=== PATIENT | female | born 1965 | race African-American/Black ===

== ENCOUNTER 2020-10-13 06:44 | Inpatient (IN) | payer OTHER ==
[~2020-10-13] VITALS: Ht 149.9 cm; Wt 70.8 kg
[2020-10-13] VITALS (17 sets, daily range): BP systolic 102–141; BP diastolic 58–96
[2020-10-13] MEDS ORDERED: ceFAZolin sod 1 GM in NS 55 ML IVPB ONE (07:00)
[2020-10-13] MEDS ORDERED: LAMICTAL25 M1 PO (07:13)
[2020-10-13] MEDS ORDERED: BUPROPION XL150 MG ORAL (07:13)
[2020-10-13] MEDS ORDERED: Gelfoam Size TOPIC ONE (07:36)
[2020-10-13] MEDS ORDERED: Lidocaine 1% 10mg/ml/Epi 0.005mg/ml 30ml vial INJ ONE (07:36)
[2020-10-13] MEDS ORDERED: Thrombin 5000 units TOPIC ONE ×2 (07:36→07:38)
[2020-10-13] MEDS ORDERED: Bacitracin 50000 Units Vial ONE (07:36)
[2020-10-13] MEDS ORDERED: Bupivacaine w/Epi 0.25% 50ml vial INJ ONE (07:36)
[2020-10-13] MEDS ORDERED: Succinylcholine 20mg/ml 10ml vial ONE (07:40)
[2020-10-13] MEDS ORDERED: Rocuronium Bromide 50mg/5ml Inj IV ONE (07:40)
[2020-10-13] MEDS ORDERED: Lidocaine 1% MPF 10mg/ml 5ml ONE (07:51)
[2020-10-13] MEDS ORDERED: fentaNYL 100 mcg/2 mL IV ONE (07:55)
[2020-10-13] MEDS ORDERED: Midazolam 2mg/2ml Inj ONE (07:55)
--- NOTE | 2020-10-13 08:19 | Anethesia Preoperative Eval ---
Anesthesia Pre-op PMH/ROS General Date of Evaluation: Oct 13, 2020 Time of Evaluation: 08:14 Anesthesiologist: Aaron ASA Score: ASA 2 Mallampati Score Class I : Soft palate, uvula, fauces, pillars visible Class II: Soft palate, uvula, fauces visible Class III: Soft palate, base of uvula visible Class IV: Only hard plate visible Mallampati Classification: Class II Surgeon: Abilio Diagnosis: Cervical radiculopathy Surgical Procedure: ACDF Anesthesia History: none Family History: no anesthesia problems Allergies: Coded Allergies: No Known Allergies (Unverified , 10/09/20) Medications: see eMAR Patient NPO?: Yes Past Medical History Cardiovascular: Denies: HTN, CAD, AL, valve dz, arrhythmia, other Pulmonary: Denies: asthma, COPD, MIKAL, other Gastrointestinal/Genitourinary: Reports: GERD; Denies: CRI, ESRD, other Neurologic/Psychiatric: Reports: depression/anxiety, other - chronic pain; Denies: dementia, CVA, TIA Endocrine: Denies: DM, hypothyroidism, steroids, other HEENT: Denies: cataract (L), cataract (R), glaucoma, NELSON LAGOON (L), NELSON LAGOON (R), other Hematology/Immune: Reports: anemia - mild; Denies: DVT, bleeding disorder, other Musculoskeletal/Integumentary: Reports: OA; Denies: RA, DJD, DDD, edema, other PMH Narrative: as above PSxH Narrative: Cholecystectomy, hysterectomy Anesthesia Pre-op Phys. Exam Physician Exam Last Vital Signs Date Time Temp Pulse Resp B/P (MAP) Pulse Ox O2 Delivery O2 Flow Rate FiO2 10/13/20 07:41 Room Air 10/13/20 07:16 97.4 76 20 124/73 (90) 98 Constitutional: NAD Neurologic: CN 2-12 intact Cardiovascular: RRR, no M/R/G Gastrointestinal: S/NT/ND Airway Exam Mallampati Score: Class II MO: limited Neck: stiff ROM: limited Teeth: missing Dentures: no upper, no lower Anesthesia Pre-op A/P Labs see chart Studies Pre-op Studies: EKG - SR Risk Assessment & Plan Assessment: ASA 2 Plan: GA with ETT, neuromonitoring Status Change Before Surgery: No Pre-Antibiotics Drug: Ancef 2gr. Given Within 1 Hr of Incision: Yes Time Given: 09:20 Gregorio Walker MD Oct 13, 2020 08:19
[2020-10-13] MEDS ORDERED: NS Irrig 1000ml ONE (08:30)
[2020-10-13] MEDS ORDERED: Neostigmine 1mg/ml 10ml Inj ONE (08:30)
[2020-10-13] MEDS ORDERED: Acetaminophen (Non formulary) 100 ML IV ONE (08:30)
[2020-10-13] MEDS ORDERED: LR 1000ml ONE (08:30)
[2020-10-13] MEDS ORDERED: propofoL 1,000mg/100ml IV ONE (08:30)
[2020-10-13] MEDS ORDERED: Sterile Water Irrig 1000ml IRRIG ONE (08:30)
--- NOTE | 2020-10-13 08:56 | Pre-Procedure Note/Attestation ---
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 I attest that, if there was a reasonable possibility of needing a blood transfusion, the patient (or the patient's legal provider service representative) was given the [facility] standardized written summary, pursuant to the [place]alyan Alix Blood Safety Act ([place] Health and Safety Code # 1645, as amended). I attest that I re-evaluated the patient just prior to the surgery and that there has been no change in the patient's H&P, except as documented below: Antione Knox MD Oct 13, 2020 08:56
--- NOTE | 2020-10-13 08:58 | Brief Operative Note ---
Immediate Post Operative Note Operative Note Pre-op Diagnosis: C456 HNP Procedure: C456 ACDF Post-op Diagnosis: same as pre-op Findings: consistent w/pre-op dx studies Surgeon: rc Mirror Installer: Holland STARK Anesthesiologist: shakeel Anesthesia: general Specimen: none Complications: none Condition: stable Fluids: 800 Estimated Blood Loss: minimal Drains: none Implant(s) used?: Yes - choice interbody and plate Antione Knox MD Oct 13, 2020 08:58
[2020-10-13] MEDS ORDERED: Gelatin Sponge,Absorbable Syr TP ONE (09:16)
[2020-10-13] MEDS ORDERED: NS Irrig 1000ml IRRIG ONE ×2 (09:16→09:49)
[2020-10-13] MEDS ORDERED: Morphine Sulfate 10mg/ml Inj ONE (09:38)
[2020-10-13] MEDS ORDERED: Sodium Chloride 10ml vial INJ ONE (09:39)
[2020-10-13] MEDS ORDERED: Glycopyrrolate 0.2mg/ml 1ml Vial ONE (09:39)
[2020-10-13] MEDS ORDERED: Ketorolac 30mg Inj ONE (09:49)
[2020-10-13] MEDS ORDERED: Meperidine 25mg/1ml Inj (FOR RIGORS ONLY) IV PRN (10:00)
[2020-10-13] MEDS ORDERED: Midazolam 2mg/2ml Inj IVP PRN (10:00)
[2020-10-13] MEDS ORDERED: Ketorolac 30mg Inj IV PRN (10:00)
[2020-10-13] MEDS ORDERED: LR 1000ml 1,000 ML IVLG SCH (10:00)
[2020-10-13] MEDS ORDERED: DiphenhydrAMINE 50mg/ml Inj IVP PRN (10:00)
[2020-10-13] MEDS ORDERED: Hydromorphone 0.5mg/0.5ml inj IVP PRN (10:00)
[2020-10-13] MEDS ORDERED: Milk of Magnesia 30ml Ud ORAL PRN ×2 (11:15→18:30)
--- NOTE | 2020-10-13 11:30 | Immediate Post-Op Evaluation ---
Immediate Post-Op Evalulation Immediate Post-Op Evalulation Procedure: ACDF C4-C5 C5-C6 Date of Evaluation: Oct 13, 2020 Time of Evaluation: 11:29 IV Fluids: 800 Blood Products: none Estimated Blood Loss: 50 Urinary Output: 250 Blood Pressure Systolic: 114 Blood Pressure Diastolic: 56 Pulse Rate: 78 Respiratory Rate: 20 O2 Sat by Pulse Oximetry: 99 Temperature (Fahrenheit): 97.8 Pain Score (1-10): 1 Nausea: No Vomiting: No Complications none Patient Status: reacts, patent, extubated, none Hydration Status: adequate Gregorio Walker MD Oct 13, 2020 11:30
--- NOTE | 2020-10-13 13:28 | Diagnostic Imaging Report ---
CLINICAL HISTORY: Neck pain. Fluoroscopic imaging from spinal surgery COMPARISON: None FINDINGS: Fluoroscopy independent procedure performed for spinal surgery. 14.1 seconds of fluoroscopy time utilized by the ordering physician. Total cumulative dose is 1.94 mGy and 0.28369 mGy.m2. Total of 4 spot images are obtained. IMPRESSION: FLUOROSCOPIC IMAGING FROM SPINAL SURGERY. PLEASE SEE OPERATIVE REPORT.
--- NOTE | 2020-10-13 13:28 | Diagnostic Imaging Report ---
CLINICAL HISTORY: Neck pain. Fluoroscopic imaging from spinal surgery COMPARISON: None FINDINGS: Fluoroscopy independent procedure performed for spinal surgery. 14.1 seconds of fluoroscopy time utilized by the ordering physician. Total cumulative dose is 1.94 mGy and 0.68102 mGy.m2. Total of 4 spot images are obtained. IMPRESSION: FLUOROSCOPIC IMAGING FROM SPINAL SURGERY. PLEASE SEE OPERATIVE REPORT.
--- NOTE | 2020-10-13 13:38 | NUR ---
NURSE NOTES: RN received report from Atilio and patient in bed. Patient is sleeping, shos no signs of respiratory distress or pain. Vitals are stable. Ice pack is placed on the neck. SCDs are on. Bed in lowest position, locked, bed alarm on. IV is patent, dry, asymptomatic. Call light within reach. Cervical collar is at the bed side.
[2020-10-13] MEDS ORDERED: Chloraseptic Spray 20mL Bottle ORAL PRN (13:45)
--- NOTE | 2020-10-13 14:30 | NUR ---
NURSE NOTES: Gregg from outpatient surgery brought the patient's belongings. Rn verified the belonging and signed.
[2020-10-13] MEDS: D5 1/2NS 1,000 ML IV SCH ×2 (14:41→21:15)
[2020-10-13] MEDS: HYDROmorphone 1mg/ml Carpuject IVP PRN ×2 (17:10→22:21)
[2020-10-13] MEDS: Docusate 100mg cap ORAL SCH (17:11)
[2020-10-13] MEDS: ceFAZolin sod 1 GM in D5W 55 ML IV SCH (17:11)
--- NOTE | 2020-10-13 17:28 | NUR ---
NURSE NOTES: RN made Dr. Guillen aware about patient's disorientation. He will come soon to see her.
--- NOTE | 2020-10-13 17:38 | NUR ---
NURSE NOTES: Patient is aaoX3. RN placed chloraseptic spray by the bedside as ordered by Dr. Guillen.
--- NOTE | 2020-10-13 18:29 | Operative Note - Dictated ---
DATE OF OPERATION: 10/13/2020 SURGEON: Antione Knox MD. CAMPUS EXECUTIVE DIRECTOR: LINCOLN Wright. ANESTHESIOLOGIST: Gregorio Wlaker MD. ANESTHESIA TYPE: General endotracheal anesthesia. PREOPERATIVE DIAGNOSES: 1. Cervical disc herniation, C5-C6. 2. Cervical bulge with spinal stenosis, C4-C5. 3. Cervical spondylotic myelopathy. POSTOPERATIVE DIAGNOSES: 1. Cervical disc herniation, C5-C6. 2. Cervical bulge with spinal stenosis, C4-C5. 3. Cervical spondylotic myelopathy. PROCEDURE: 1. Wide and radical discectomy, anterior cervical spine, C4-C5, C5-C6. 2. Placement of interbody fusion device (ChoiceSpine). 3. Use of local autograft and Signafuse allograft. 4. Anterior cervical plating using ChoiceSpine plate, C4, 5 and 6. 5. Use of fluoroscopy. 6. Use of operating microscope. 7. Neurodiagnostic monitoring. ESTIMATED BLOOD LOSS: Minimal. COMPLICATIONS: None. FLUIDS: 800 mL. IMPLANTS: A 5 mm small and 6 mm small lordotic cages at C4-C5 and C5-C6 respectively. INDICATIONS: The patient is a very pleasant woman with fairly severe and intractable neck with myeloradiculopathic symptoms, severe spinal stenosis at C5-C6 and to a lesser extent C4-C5. Surgical recommendations were made. Due to the possible need for posterior laminectomy in the future, it was elected to perform a fusion rather than artificial disc replacement. RISK NOTE: The patient was explained in detail risks and benefits of surgery to include, but not be limited to those of bleeding, infection, damage to nerves, vessels, tendons, anesthetic risk, allergic reaction, aspiration, and possibly . The patient understood and wished to proceed. OPERATIVE PROCEDURE IN DETAIL: The patient was taken to the operative suite. After general endotracheal anesthesia was obtained, Rome catheter was placed. She was positioned supine onto a radiolucent table bolster under her neck, chin was strapped. The neck was prepped and draped in usual sterile fashion. Fluoroscope was brought in place and the C4-C5 and C5-C6 level was identified. At this point, the skin was infiltrated with Marcaine with epinephrine. The incision was carried out transversely along the skin crease and taken out through the subcutaneous. The platysma was incised perpendicular to the fibers. The interval between the esophagus and the sternocleidomastoid was bluntly developed and dissection was carried out to the prevertebral fascia. The self-retaining retractors were put in place. A needle was placed at C5-C6 and radiographically this was confirmed. At this point, operating microscope was brought into place. The longus colli was elevated off the bone. The anterior longitudinal ligament was removed from C5 and partially at C6. Juan posts 12 mm were placed at C5 and C6. At this point, the disc was incised and gentle disc distraction was obtained. Straight and curved curettes were used to remove the disc all the way down to the posterior annulus. A disc rupture with extrusion through the posterior annulus was identified and this was removed in a piecemeal fashion. The posterior longitudinal ligament was also removed using meticulous technique using #1 and #2 Kerrison punch. Once the decompression of the spinal cord was achieved, copious irrigation was performed. FloSeal was applied. The appropriate size trial was put into place and a small lordotic 6 mm cage was chosen. It was centrally packed with bone graft from the anterior osteophyte resection as well as with Signafuse. It was inserted into the disc space. This was verified fluoroscopically and noted to be in good position. Juan posts was removed from C6. The retractors were moved to the C4-C5 level. [place] posts was placed at the C4 level and in an identical fashion wide and radical discectomy was achieved. Please note that endplate preparation at both levels was meticulously performed to achieve a solid fusion. The implant placed at the C4-C5 level was 5 mm lordotic cage. Once this was safely achieved, the [place] posts were both removed. Bone wax was applied to both Juan posts sites. At this point, the appropriate size 26 mm plate was chosen, contoured and applied to the anterior vertebral body. The screw holes were drilled and the appropriate size 12 mm screws were placed first at C5 bilaterally and subsequently at C4, then at C6. Once all screw placement was verified and noted to be in the solid and firmly inserted into the bone, copious irrigation was performed. Final fluoroscopic images confirmed good overall hardware placement. Copious irrigation once again performed. A small amount of bone graft was placed lateral to the cages. At this point, decision was made to close. Meticulous hemostasis was achieved. The platysma was repaired using 3-0 Vicryl, subcutaneous closure using 4-0 Vicryl. Dermabond and sterile dressing, 2 x 2 Tegaderm was applied. At time of this dictation, the patient was awaiting extubation. Sponge and needle counts were correct. Antione Harshal Knox DR: SAEED JOB#: [id number] CC:
[2020-10-13] MEDS ORDERED: LORazepam 0.5mg tab ORAL PRN (18:30)
[2020-10-13] MEDS ORDERED: LORazepam 0.5mg tab ORAL SCH (18:30)
[2020-10-13] MEDS ORDERED: HYDROcodone/Acetamin 5/325 tab ORAL PRN (18:30)
--- NOTE | 2020-10-13 18:36 | NUR ---
NURSE NOTES: Patient is moved to a room right next to the nursing station as ordered by Dr. Guillen. RN made Dr. Guillen about patient having anxiety attacks and received orders for Lamictal and Ativan. Pharmacist Noel is verifying the order for two doses of Lamictal with Dr. Guillen as it seems like a duplicate order.
--- NOTE | 2020-10-13 19:20 | NUR ---
NURSE NOTES: Received report from ERICA Barboza. Pt is in bed, call light within reach, side rails up x3, bed locked and in lowest position. Pt verbalized understanding to make her needs known. IVF infusing well. Will continue to monitor.
--- NOTE | 2020-10-13 19:27 | NUR ---
NURSE NOTES: Ativan and Lamictal given as ordered.
--- NOTE | 2020-10-13 19:27 | NUR ---
NURSE HAND-OFF: Important Events on Shift:post op intervention, psych and pain meds Patient Status: anxious Diet: soft easy chew Pending Orders: n/a Pending Results/Labs:n/a Pending MD notification:n/a Latest Vital Signs: Temperature 97.4 , Pulse 78 , B/P 141 /96 , Respiratory Rate 18 , O2 SAT 98 , Nasal Cannula, O2 Flow Rate 3 . Vital Sign Comment: stable Latest Howard Fall Score: 20 Fall Risk: Low Risk Safety Measures: Call light Within Reach, Bed Alarm Zone 1, Side Rails Side Rails x1, Bed position Low and Locked. Fall Precautions: Report given to
[2020-10-13] MEDS: BuPROPion XL 150mg tab ORAL SCH (19:58)
--- NOTE | 2020-10-13 20:29 | Consultation ---
DATE OF CONSULTATION: 10/13/2020 CONSULTING PHYSICIAN: Chalo Guillen MD. REFERRING PHYSICIAN: Antione Knox MD. REASON FOR CONSULTATION: Acute pain consult HISTORY OF PRESENT ILLNESS: Dr. Antione Knox, Thank you kindly for consulting me to evaluate and render an opinion as to how to proceed in the management of the patient's acute postoperative cervical spine pain after cervical spine instrumentation surgery today. The patient is a 54-year-old woman, who injured her cervical spine in a work-related injury. Today, she underwent multi-level cervical spine instrumentation surgery and the patient complains significant discomfort postoperatively. You consulted me to help with the patient's postoperative management and pain control. I saw the patient at bedside with the charge nurse, ERICA Ambrosio. I performed a detailed history and physical examination. I spent over 75 minutes in consultation with an additional 30 minutes in medical record review. Multiple records were reviewed including utilization review and surgical authorization by [employer], dated September 21, 2020 certifying multi-level cervical spine surgery as certified and authorized at [facility] with Dr. Antione Knox. Further records reviewed include preoperative history and physical by Dhiraj Hernández MD., dated October 09, 2020 along with diagnostic testing. Multiple records were reviewed from today's date of surgery, October 13, 2020 at [facility], including consent for surgical treatment, consent for anesthesia, consent for blood products, medication administration record, medication reconciliation order form, PACU record, PACU orders, anesthesia record, pre- and post-anesthesia evaluation record, postoperative spine surgical orders and postoperative surgery report by Dr. Antione Knox, initial nursing assessment, 24-hour medical and surgical flow sheet, and Weinbreg-Fish diagram for cognitive disability. PAST MEDICAL HISTORY: 1. Acute postoperative cervical spine pain, status post mult-level cervical spine instrumentation surgery by Dr. Antione Knox, October 2020. 2. Work-related injury. 3. Severe anxiety and depression, on multiple antidepressant medications including Wellbutrin and Lamictal. 4. Mild obesity. PAST SURGICAL HISTORY: Hysterectomy and cholecystectomy. FAMILY HISTORY: Mother is alive and I spoke with the mother on the phone. SOCIAL HISTORY: The patient lives with her in [place] and her mother lives locally in [place] and is in good contact with the patient. The mother plans to assist the patient with her recovery. The patient denies marijuana usage or tobacco usage. REVIEW OF SYSTEMS: Per attending physician. ALLERGIES: No known drug allergies. MEDICATIONS: At home, multivitamins, Wellbutrin extended release 300 mg daily, and Lamictal 25 mg daily. PHYSICAL EXAMINATION: VITAL SIGNS: Age 54. Height 4 feet 11 inches. Weight 156 pounds. Body mass index 32. Her vital signs shows 98% oxygen saturation on room air. Afebrile. Pulse 80. Respirations 18. Blood pressure 140/96. HEENT: Shows pain with range of motion of the neck. Moving all extremities x4. Alert and ordered x3; however, the patient is a bit confused. I was speaking with the patient and her mother via telephone, the patient just seems a bit disoriented after waking up from surgery. Her oxygen saturation is normal and she appears non-toxic. Kimball collar remains in place and I fitted the Kimball collar rigid brace for better comfort. The patient shows no signs of respiratory trouble after her neck surgery. She is breathing normal respiratory rate and comfortably. The patient also was phonating and swallowing adequately. CHEST: Clear to auscultation. HEART: Regular rate and rhythm. ABDOMEN: Mildly obese. Positive bowel sounds. BREASTS: Deferred. GENITOURINARY: Deferred. Rome catheter in place. NEUROLOGIC: Detailed neurologic exam per Dr. Knox. DIAGNOSTIC TESTING: Shows 12-lead EKG. Heart rate is 69, dated October 09, 2020. MRI cervical spine, dated June 22, 2020 shows broad base cervical spine disk protrusions at C4-5 and C5-6 causing severe spinal canal stenosis. LABORATORY STUDIES: Shows urine toxicology screen all negative. Hemoglobin A1c 5.8, normal. Sedimentation rate 24, normal. TSH 0.7, normal. Further preoperative laboratories from October 09, 2020 shows INR 1.1, PTT 30. Sodium 142, potassium 4.3, chloride 106, bicarb 29, BUN 20, creatinine 1.0. Calcium 9.3. Total protein 7.3, albumin 4.0. AST is 14, ALT 12, total bilirubin 0.2. Glucose 102. White count 5, hematocrit 33, platelets 274. IMPRESSION: 1. Acute postoperative cervical spine pain, status post mult-level cervical spine instrumentation surgery by Dr. Antione Knox, October 2020. 2. Work-related injury. 3. Severe anxiety and depression, on multiple antidepressant medications including Wellbutrin and Lamictal. 4. Mild obesity. TREATMENT RECOMMENDATIONS: I spoke with the recovery room nurse, ERICA Trimble, prior to examining the patient at bedside. I spoke with the hospital pharmacist, Nae. I will restart the patient's psychiatric medications starting with her Lamictal 25 mg dose now and restart her Wellbutrin 300 mg in the morning. The patient states that she feels quite anxious. I earlier had recommended the dose of 0.5 mg intravenous Dilaudid for analgesia. The patient tolerated this dose without any adverse side effects or respiratory depression. I therefore will trial her on low-dose benzodiazepine for anxiolysis. I will start with 0.25 mg orally. I prefer to use oral route compared to intravenous, to reduce the risk for respiratory depression. I have also added p.r.n. dose of hydrocodone 5/325 mg to be trialed one tablet every three hours p.r.n. for mild pain. I recommend to hold off on further narcotics at this time. I will alternate these two doses of the hydrocodone and hydromorphone, while adjusting the doses as necessary to achieve anxiolysis and effective analgesia. I have also asked the nurse to place Chloraseptic spray at the bedside to help with topical sore throat complaints. I have added Fioricet for any postoperative headache complaints. The patient has no known drug allergies. I will empirically place the patient on Pepcid 20 mg b.i.d. for GI ulcer prophylaxis and I have also ordered p.r.n. dose of Mylanta 30 mL every 6 hours in case of any GERD symptom exacerbation. I have ordered Zofran as a rescue antiemetic at 4 mg intravenous dose every 4 hours p.r.n. I have ordered Benadryl 25 mg orally every 6 hours in case of any itching complaints. I will place the patient on Colace 100 mg b.i.d. to promote bowel regularity and I have ordered p.r.n. dose of milk of magnesia as a rescue laxative. With her obesity, I have ordered incentive spirometer to be placed at the bedside to encourage good pulmonary toilet. Sequential compression pneumatic devices have been ordered for DVT prophylaxis. The Rome catheter will remain in place overnight. We will start physical therapy training in the morning and hopefully be able to discharge the patient home within next 24 hours to and/or mother. At the time of discharge, the patient will need a prescription for postop outpatient pain medications. Chalo Guillen M.D. DR: HARDY JOB#: [id number] CC:
[2020-10-14] VITALS: BP 111/70
[2020-10-14] MEDS: ceFAZolin sod 1 GM in D5W 55 ML IV SCH ×2 (01:35→09:43)
[2020-10-14] MEDS: D5 1/2NS 1,000 ML IV SCH ×2 (02:03→17:33)
--- NOTE | 2020-10-14 03:26 | Pain Management Progress Note ---
Allergies: Coded Allergies: No Known Allergies (Unverified , 10/09/20) Vitals Vital Signs Date Time Temp Pulse Resp B/P (MAP) Pulse Ox O2 Delivery O2 Flow Rate FiO2 10/14/20 00:00 97.6 70 18 111/70 (84) 98 10/13/20 21:00 Room Air 10/13/20 20:00 97.8 76 20 138/85 (102) 98 10/13/20 19:22 78 18 141/96 98 Medications Current Medications Acetaminophen (Tylenol) 650 mg Q6H PRN ORAL Temp >100.5; Start 10/13/20 at 18:30; Stop 11/12/20 at 18:29 Acetaminophen/ Butalbital/ Caffeine (Fioricet) 1 tab Q8H PRN ORAL headache; Start 10/13/20 at 18:45; Stop 11/12/20 at 18:44 Acetaminophen/ Hydrocodone Bitart ([place] 5/325) 1 tab Q3H PRN ORAL Mild Pain (Pain Scale 1-3) Last administered on 10/14/20at 03:11; Start 10/13/20 at 18:30; Stop 10/20/20 at 18:29 Al Hydroxide/Mg Hydroxide (Mylanta) 30 ml Q6H PRN ORAL gerd; Start 10/13/20 at 18:30; Stop 11/12/20 at 18:29 Bupropion HCl (Wellbutrin XL) 300 mg DAILY ORAL Last administered on 10/13/20at 19:58; Start 10/13/20 at 20:00; Stop 11/13/20 at 19:59 Cefazolin Sodium 1 gm/Dextrose 55 ml @ 110 mls/hr Q8H IV Last administered on 10/14/20at 01:35; Start 10/13/20 at 17:30; Stop 10/14/20 at 09:59 Dextrose/Sodium Chloride 1,000 ml @ 100 mls/hr Q10H IV Last administered on 10/14/20at 02:03; Start 10/13/20 at 11:15; Stop 11/12/20 at 11:14 Diphenhydramine HCl (Benadryl) 25 mg Q6H PRN ORAL Itching; Start 10/13/20 at 18:30; Stop 11/12/20 at 18:29 Docusate Sodium (Colace) 100 mg TWICE A DAY ORAL Last administered on 10/13/20at 17:11; Start 10/13/20 at 18:00; Stop 11/12/20 at 17:59 Famotidine (Pepcid) 20 mg BID ORAL ; Start 10/14/20 at 09:00; Stop 01/12/21 at 08:59 Hydromorphone HCl (Dilaudid) 0.5 mg Q2H PRN IVP Moderate Pain (Pain Scale 4-6) Last administered on 10/13/20at 22:21; Start 10/13/20 at 13:45; Stop 10/20/20 at 13:44 Lamotrigine (LaMICtal) 25 mg DAILY ORAL ; Start 10/14/20 at 09:00; Stop 11/13/20 at 08:59 Lorazepam (Ativan) 0.25 mg Q6H PRN ORAL anxiety / insomnia; Start 10/13/20 at 18:30; Stop 10/20/20 at 18:29 Magnesium Hydroxide (Mom) 30 ml DAILYPRN PRN ORAL Constipation; Start 10/13/20 at 18:30; Stop 11/12/20 at 18:29 Ondansetron HCl (Zofran) 4 mg Q6H PRN IVP Nausea & Vomiting Last administered on 10/13/20at 20:10; Start 10/13/20 at 11:15; Stop 11/12/20 at 11:14 Phenol/Menthol (Chloraseptic) 1 spray Q2H PRN ORAL patient comfort; Start 10/13/20 at 13:45; Stop 01/11/21 at 13:44 Plan: Patient seen with nursing team RNs Chalo and Danielle. Discussed with surgeon Dr Knox. Pain level 6 / 10 on the visual-analog pain scale. Dilaudid made pt 'feel strange.' Pt has tolerated hydrocodone in the past; Will trial prn norco 5mg, & also added prn 10mg dose for severe pain. PO ativan last night very helpful; will continue prn q6H. Pt feels much less anxious. A+Ox4 presently; postop confusion from yesterday is fully resolved. Neck wound dressing clean and dry. No Hemovac drain. I repositioned Hawthorne collar, with pt feeling more comfortable. VSS. No SOB, CP. Swallowing, breathing, phonating WNL after ACDF. Breathing comfortably on room air. MAR medication list reviewed. Advancing diet tolerated without emesis. GI: +BS +flatus; no BM Encourage incentive spirometer usage. Encourage advancing ambulation with physical therapy training to start later this morning as tolerated. Pt already out of bed with nurse today. SCDs for mechanical prophylaxis against deep venous thrombosis and PEs. Discussed discharge planning with RNs & surgeon to help expedite hospital disc harge. Pt's in [place] will be able to assist pt with ADL, and drive pt home from hospital later today. Rx left #40 [place] 10/325 for outpatient pain medication usage. Chalo Guillen MD Oct 14, 2020 03:26
[2020-10-14] MEDS ORDERED: HYDROcodone/Acetamin 10/325 tab ORAL PRN (03:30)
[2020-10-14 04:00] VITALS: BP 112/78
--- NOTE | 2020-10-14 07:20 | NUR ---
NURSE HAND-OFF: Important Events on Shift: Pt able to ambulate with RN supervision Patient Status: calm Diet: post op cervical soft easy chew Pending Orders: Pending Results/Labs: Pending MD notification: Latest Vital Signs: Temperature 97.0 , Pulse 69 , B/P 112 /78 , Respiratory Rate 20 , O2 SAT 97 , Nasal Cannula, O2 Flow Rate 3 . Vital Sign Comment: VSS Latest Howard Fall Score: 20 Fall Risk: Low Risk Safety Measures: Call light Within Reach, Bed Alarm Zone 1, Side Rails Side Rails x3, Bed position Low and Locked. Fall Precautions: Yellow Socks Door Sign Patient Fall Education Report given to ERICA Sharma.
--- NOTE | 2020-10-14 07:25 | NUR ---
NURSE NOTES: Received report from ERICA Isabel. Rounding done with outgoing nurse. Pt a/o x 4, having breakfast. No SOB noted. Denies any pain at this time. Cervical dressing is dry/intact. Lt hand IV access is in placed. SCD is on. Bed in lowest position, call light within reach. Will continue to monitor.
[2020-10-14 08:00] VITALS: BP 123/68
[2020-10-14] MEDS: Docusate 100mg cap ORAL SCH ×2 (08:48→17:33)
[2020-10-14] MEDS: BuPROPion XL 150mg tab ORAL SCH (08:48)
[2020-10-14] MEDS ORDERED: BuPROPion XL 150mg tab ORAL SCH (09:00)
--- NOTE | 2020-10-14 09:10 | NUR ---
PT EVALUATION NOTE Patient seen for initial evaluation and treatment initiated. Patient presents with pain and impaired functional mobility s/p cervical spine surgery. Patient instructed in cervical spine precautions and in log roll technique for in/OOB. Patient required min assist for bed mobility and for transfers without an AD. Patient able to ambulate 80 ft with min assist/handhold assist, unsteady with reports of feeling "nervous". Patient will benefit from skilled inpatient PT intervention to improve functional mobility, safety and activity tolerance and to ensure compliance with spine precautions. Anticipate discharge home once medically cleared by MD. No DME needs identified at this time. Addendum: 10/14/20 at 1216 by BRYSON AVENDANO PT Amended: Links added.
[2020-10-14 12:00] VITALS: BP 149/78
--- NOTE | 2020-10-14 12:30 | NUR ---
NURSE NOTES: Dr. Guillen ordered walker and will put it in.
[2020-10-14] MEDS ORDERED: MULTIVITAMINS1 EAC2 ORAL (12:38)
[2020-10-14] MEDS ORDERED: COD LIVER OIL1 EAC4 PO (12:38)
[2020-10-14] MEDS ORDERED: FOLIC ACID1 MG ORAL (12:38)
[2020-10-14] MEDS ORDERED: LYSINE1000 MG PO (12:38)
[2020-10-14] MEDS ORDERED: IBUPROFEN600 M1 ORAL (12:38)
[2020-10-14] MEDS ORDERED: VITAMIN C500 M1 ORAL (12:38)
[2020-10-14 16:00] VITALS: BP 114/68
--- NOTE | 2020-10-14 17:05 | NUR ---
NURSE NOTES: Dr. Knox ordered d/c home and reconciles meds. ordered continue home meds except ibuprofen.
--- NOTE | 2020-10-14 17:23 | NUR ---
TEXTILE ENGINEER NOTES RECIEVED A CALL FROM THE NURSE REQUESTING DC TO REHAB. SPOKE WITH THE PT, PT STATED SHE DOES NOT WANT TO GO TO A REHAB, SHE FURTHER STATED SHE SPOKE WITH [facility] DO NURSE AND WAS INSTRUCTED TO STAY ANOTHER NIGHT. SPOKE WITH THE PRIMARY NURSE AND ENCOURAGED HER TO CALL THE FOR DCP UPDATE.
--- NOTE | 2020-10-14 18:14 | NUR ---
NURSE NOTES: Dr. Knox ordered d/c home.
--- NOTE | 2020-10-14 19:39 | NUR ---
NURSE NOTES: Discharge instruction was given including home medication. All belongings list checked. Removed IV/ID. Patient discharged in stable condition.
--- NOTE | 2020-10-15 11:37 | Discharge Summary ---
Discharge Summary Discharge Summary _ Date of admission: 10/13/2020 Date of discharge: 10/14/[address] Knox History of Present Illness and Brief Hospital Course Ms. Álvarez is a 54-year-old female who presented to [facility] for a scheduled surgery. She had fairly severe and intractable neck pain with mild l ow radiculopathic symptoms, severe spinal stenosis at C5-C6 and to a lesser extent C4-C5. Surgical recommendations were made. Due to the possible need for posterior laminectomy in the future, it was elected to perform a fusion rather than artificial disc replacement. Patient underwent wide and radical discectomy, anterior cervical spine at C4-C5 and C5-C6, placement of interbody fusion device (ChoiceSpine), and anterior cervical plating using ChoiceSpine plate at C4, C5 and C6. The details of the operation can be found in the operative note by Dr. Knox. Her medication regimen was reviewed and adjusted by Dr. Guillen after the surgery. Patient was also evaluated by a physical therapist who found the patient ambulating 80 feet with minimal assistance. Patient was medically stable for discharge and was discharged home on 10/14/2020. Patient was instructed to follow-up in 2 weeks. That physician's office number was given to the patient. Consultants: Pain management Dr. Guillen Discharge Condition Stable Discharge Activity As tolerated Final diagnoses Cervical disc herniation, C5-C6. Cervical bulge with spinal stenosis, C4-C5. Cervical spondylotic myelopathy. s/p wide and radical discectomy, anterior cervical spine, C4-C5, C5-C6. s/p placement of interbody fusion device (ChoiceSpine). s/p use of local autograft and Signafuse allograft. s/p anterior cervical plating using ChoiceSpine plate, C4, 5 and 6. I have been assigned to dictate discharge summary for this account. I was not involved in the patient's management Sukumar Berger Oct 15, 2020 11:37
== END 2020-10-14 19:30 | disposition home or self-care (01) | DRG 472 ==
LOC: SDSOVERFLO 06:44 → 4E 13:08
PROC: 0RB30ZZ Excision of Cervical Vertebral Disc, Open Approach (ICD-10-PCS; principal; 2020-10-13 08:30)
PROC: 0RG20A0 Fusion of 2 or more Cervical Vertebral Joints with Interbody Fusion Device, Anterior Approach, Anterior Column, Open Approach (ICD-10-PCS; principal; 2020-10-13 08:30)
DX: M50.021 Cervical disc disorder at C4-C5 level with myelopathy (principal); M47.12 Other spondylosis with myelopathy, cervical region; M48.02 Spinal stenosis, cervical region; F41.8 Other specified anxiety disorders; T14.90XS Injury, unspecified, sequela; X58.XXXS Exposure to other specified factors, sequela; E66.9 Obesity, unspecified
CPT/HCPCS: 36415; 72040; 76000; 86850; 86900; 86901; 87081; 94003; 94150; J2180; J2250; J2405; J2710